=== PATIENT | male | born 1955 | race Caucasian/White ===

== ENCOUNTER 2017-02-01 10:20 | Inpatient (IN) | payer OTHER ==
[~2017-02-01] VITALS: Ht 165.1 cm; Wt 87.0 kg
[~2017-02-01 10:20] MED LIST: AMIT10TA6 PO; BENA20TA48 PO; FENO134C PO; GLIM2TAB PO; ISOS20TA19 PO; MELO-210 PO; METF1000 PO; OLME1TAB25 PO; OMEP20CA16 PO; RIVA20TA PO; SIMV40TA7 PO; TAMS0.4C2 PO; ZOLP10TA5 PO
[2017-02-01 10:23] VITALS: Ht 165.1 cm; Wt 87.0 kg
[2017-02-01 12:26] LABS: BASOPHILS % 0.7 % (0.0-2.0); EOSINOPHILS # 0.1 10^3/ul (0.0-0.5); EOSINOPHILS % 0.9 % (0.0-7.0); HEMATOCRIT 40.8 % (42.0-52.0); HEMOGLOBIN 14.4 g/dl (14.0-18.0); LYMPHOCYTES # 1.9 10^3/ul (0.8-2.9); MEAN CORPUSCULAR HEMOGLOBIN 31.7 pg (29.0-33.0); MEAN CORPUSCULAR HGB CONC 35.3 g/dl (32.0-37.0); MEAN CORPUSCULAR VOLUME 89.9 fl (82.0-101.0); MEAN PLATELET VOLUME 10.1 fl (7.4-10.4); MONOCYTE # 0.5 10^3/ul (0.3-0.9); MONOCYTES % 9.3 % (0.0-11.0); NEUTROPHIL # 2.8 10^3/ul (1.6-7.5); NEUTROPHILS % 52.9 % (39.0-77.0); PLATELET COUNT 195 10^3/UL (140-415); RED BLOOD COUNT 4.54 10^6/ul (4.70-6.10); RED CELL DISTRIBUTION WIDTH 12.5 % (11.5-14.5); WHITE BLOOD COUNT 5.4 10^3/ul (4.8-10.8)
[2017-02-01 12:32] LABS: ANION GAP 15 (8-16); BLOOD UREA NITROGEN 16 mg/dl (7-20); CALCIUM 9.4 mg/dl (8.4-10.2); CARBON DIOXIDE 25 mmol/L (21-31); CHLORIDE 106 mmol/L (97-110); CREATININE 0.93 mg/dl (0.61-1.24); GLUCOSE 86 mg/dl (70-220); POTASSIUM 4.1 mmol/L (3.5-5.1); SODIUM 142 mmol/L (135-144)
[2017-02-01 12:47] LABS: TROPONIN-I < 0.012 ng/ml (0.00-0.12)
[2017-02-01] MEDS ORDERED: LABETALOL HCL 20MG INJ IV ONE (13:00)
[2017-02-01] MEDS ORDERED: NITROGLYCERIN (SL) 0.4 MG TAB SL ONE (13:00)
[2017-02-01] MEDS ORDERED: ASPIRIN 81 MG TAB PO ONE (13:00)
[2017-02-01] MEDS ORDERED: LIDOCAINE/MYLANTA 40 ML BTL PO ONE (13:00)
--- NOTE | 2017-02-01 15:32 | RADRPT ---
PROCEDURE: XR Chest. CLINICAL INDICATION: Chest pain. TECHNIQUE: Single frontal view. COMPARISON: 07/17/2015. FINDINGS: There is mild interstitial disease bilaterally consistent with pulmonary edema. The lungs are otherw ise clear. The heart size is normal. There is no pleural effusion. There is no pneumothorax. IMPRESSION: 1. Mild pulmonary edema. 2. Otherwise normal chest x-ray. RPTAT: QQ .Rory Ceron MD, MD Date Time Electronically viewed and signed by .Rory Ceron MD, MD on 02/01/2017 15:31 .R/
[2017-02-01] MEDS ORDERED: ONDANSETRON 4 MG INJ IV PRN ×2 (16:00→18:30)
[2017-02-01] MEDS ORDERED: hydrALAzine 20 MG INJ IV ONE (16:00)
[2017-02-01] MEDS ORDERED: ACETAMINOPHEN 325 MG TAB PO PRN (16:00)
[2017-02-01 16:38] VITALS: TEMP 98.3
[2017-02-01 17:50] LABS: CREATINE KINASE 83 IU/L (23-200)
[2017-02-01 18:10] LABS: CK-MB 1.64 ng/ml (0.0-2.4); TROPONIN-I < 0.012 ng/ml (0.00-0.12)
[2017-02-01] MEDS ORDERED: SOD CHLORIDE 0.45% 1,000 ML IV SCH (18:17)
--- NOTE | 2017-02-01 18:26 | ERD ---
ER Documentation Chief Complaint Chief Complaint CHEST PAIN WITH SOB HPI This 61-year-old male presents with pressure-like substernal and left-sided chest pain going on for a few hours as well as shortness of breath and intermittent nausea. Pain is nonradiating. He has diabetes, hypertension, hypercholesterolemia. He has not smoked before. ROS All systems reviewed and are negative except as per history of present illness. Medications Home Meds Active Scripts Olmesartan-Hydrochlorothiazide (Benicar HCT) 40-12.5 Mg Tablet, 1 TAB PO DAILY, #30 TAB Prov:TIMOTHY ALBERTS DO 10/01/15 Rivaroxaban* (Xarelto*) 20 Mg Tablet, 20 MG PO WITH DINNER for 30 Days, TAB Prov:FARHEEN CARTER COTTON CONVERTER 07/19/15 Reported Medications Amitriptyline Hcl* (Amitriptyline Hcl*) 10 Mg Tablet, 10 MG PO DAILY 07/17/15 Fenofibrate, Micronized (Fenofibrate) 134 Mg Capsule, 134 MG PO DAILY 07/17/15 Metformin Hcl* (Metformin Hcl*) 1,000 Mg Tablet, 1000 MG PO BID 07/17/15 Omeprazole* (Omeprazole*) 20 Mg Capsule.dr, 20 MG PO DAILY 07/17/15 Meloxicam* (Mobic*) 15 Mg Tablet, 15 MG PO DAILY 07/17/15 Isosorbide Dinitrate* (Isosorbide Dinitrate*) 20 Mg Tablet, 30 MG PO DAILY 07/17/15 Tamsulosin Hcl* (Tamsulosin Hcl*) 0.4 Mg Cap.er.24h, 0.4 MG PO DAILY, CAP 07/17/15 Glimepiride* (Glimepiride*) 2 Mg Tablet, 2 MG PO DAILY 07/17/15 Zolpidem Tartrate* (Zolpidem Tartrate*) 10 Mg Tablet, 10 MG PO QHS Y for INSOMNIA, #30 07/17/15 Simvastatin (Simvastatin) 40 Mg Tablet, 40 MG PO DAILY 07/17/15 Benazepril Hcl* (Benazepril Hcl*) 20 Mg Tablet, 20 MG PO DAILY 07/17/15 Allergies Allergies: Coded Allergies: No Known Allergy (Unverified , 02/01/17) PMhx/Soc History of Surgery: No Anesthesia Reaction: No Hx Neurological Disorder: No Hx Respiratory Disorders: No Hx Cardiac Disorders: Yes (HTN) Hx Psychiatric Problems: No Hx Miscellaneous Medical Probl: Yes (DM, ENLARGED PROSTATE) Hx Alcohol Use: Yes (Vodka socially) Hx Substance Use: No Hx Tobacco Use: No (FORMER) Smoking Status: Former smoker Physical Exam Vitals Vital Signs Date Time Temp Pulse Resp B/P Pulse Ox O2 Delivery O2 Flow Rate FiO2 02/01/17 17:11 66 17 152/105 100 Room Air 02/01/17 16:38 98.3 56 18 141/105 100 Room Air 02/01/17 15:18 98.3 54 18 150/128 100 Room Air 02/01/17 13:45 72 18 145/97 100 Room Air 02/01/17 12:58 70 18 165/127 100 Room Air 02/01/17 11:38 Nasal Cannula 2 02/01/17 10:23 98.1 78 18 179/107 100 Physical Exam Const: [] Moderate distress Head: Atraumatic Eyes: Normal Conjunctiva ENT: Normal External Ears, Nose and Mouth. Neck: Full range of motion..~ No meningismus. Resp: Clear to auscultation bilaterally Cardio: Irregularly irregular, no murmurs Abd: Soft, non tender, non distended. Normal bowel sounds Skin: No petechiae or rashes Back: No midline or flank tenderness Ext: No cyanosis, or edema Neur: Awake and alert oriented 3, no focal deficits Psych: Normal Mood and Affect Result Diagram: 02/01/17 1144 02/01/17 1144 Results 24 hrs Laboratory Tests Test 02/01/17 11:44 02/01/17 17:15 White Blood Count 5.410^3/ul Red Blood Count 4.5410^6/ul Hemoglobin 14.4g/dl Hematocrit 40.8% Mean Corpuscular Volume 89.9fl Mean Corpuscular Hemoglobin 31.7pg Mean Corpuscular Hemoglobin Concent 35.3g/dl Red Cell Distribution Width 12.5% Platelet Count 40611^3/UL Mean Platelet Volume 10.1fl Neutrophils % 52.9% Lymphocytes % 36.0% Monocytes % 9.3% Eosinophils % 0.9% Basophils % 0.7% Nucleated Red Blood Cells % 0.0/100WBC Neutrophils # 2.810^3/ul Lymphocytes # 1.910^3/ul Monocytes # 0.510^3/ul Eosinophils # 0.110^3/ul Basophils # 0.010^3/ul Nucleated Red Blood Cells # 0.010^3/ul Sodium Level 142mmol/L Potassium Level 4.1mmol/L Chloride Level 106mmol/L Carbon Dioxide Level 25mmol/L Anion Gap 15 Blood Urea Nitrogen 16mg/dl Creatinine 0.93mg/dl Glucose Level 86mg/dl Calcium Level 9.4mg/dl Troponin I < 0.012ng/ml < 0.012ng/ml Creatine Kinase 83IU/L Creatine Kinase Index 2.0 Creatinine Kinase MB (Mass) 1.64ng/ml Current Medications Medications (Trade) Dose Ordered Sig/Jordan Route PRN Reason Start Time Stop Time Status Last Admin Dose Admin Aspirin (Aspirin) 324 mg ONCE ONCE PO 02/01/17 13:00 02/01/17 13:14 DC 02/01/17 13:09 Miscellaneous Medication (Gi Cocktail (2)) 40 ml ONCE ONCE PO 02/01/17 13:00 02/01/17 13:14 DC 02/01/17 13:09 Nitroglycerin (Nitroglycerin (Sl Tab) 0.4 Mg) 1 tab ONCE ONCE SL 02/01/17 13:00 02/01/17 13:14 DC 02/01/17 13:09 Labetalol HCl (Labetalol) 20 mg ONCE ONCE IV 02/01/17 13:00 02/01/17 13:14 DC Hydralazine HCl (Apresoline) 10 mg ONCE ONCE IV 02/01/17 16:00 02/01/17 16:01 DC 02/01/17 16:37 Ondansetron HCl (Zofran Inj) 4 mg ER BRIDGE PRN IV NAUSEA AND/OR VOMITING 02/01/17 16:00 02/02/17 15:59 Acetaminophen (Tylenol Tab) 650 mg ER BRIDGE PRN PO MILD PAIN/FEVER 02/01/17 16:00 02/02/17 15:59 Procedures/MDM Hypertensive crisis with chest pain and congestive heart failure.. Patient required multiple doses of antihypertensives to lower his refractory hypertension with very high diastolic pressures. He was given aspirin, nitroglycerin, hydralazine. His insurance had him capitated in the hospital and I had spoken with Dr. Lr, who accepted transfer at that time the patient had stabilized blood pressure however it increased even higher levels than before. Given a dose of hydralazine. His blood pressure increases again while he is in the emergency room I considering place him on a Cardene drip in ICU admission. Chest pain was improved with nitroglycerin although patient did have some residual chest pain. EKG showed only A. fib without any ischemia and initial troponin was negative. Is being admitted to telemetry for further monitoring. Hospitalist group is admitting him, Dr. Kashif Mason. I reviewed patient's EMR and she was admitted for chest pain last year. He was ruled out with troponins and had an echocardiogram showing moderate tricuspid disease and mildly depressed ejection fraction. No stress test or catheterization has been performed. EKG interpretation: Atrial fibrillation, rate controlled, no ST-T wave changes concerning for acute ischemia. monitoring analyst interpretation: Atrial fibrillation with no other arrhythmias X-ray interpretation: Engorgement of the pulmonary vasculature with mild bilateral pulmonary edema, no infiltrates, no pneumothorax, no fractures. Care time greater than 35 minutes: This includes treatment of hypertensive crisis with refractory diastolic blood pressure, use of nitroglycerin, hydralazine, consideration of Cardene drip and ICU admission, opens the patient' s bedside to reassess status, review of chart, discussion with patient and admitting doctor. This does not include any billable procedures. Departure Diagnosis: Primary Impression: Chest pain Additional Impressions: Atrial fibrillation CHF (congestive heart failure) Hypertensive emergency Condition: Serious ALVA DODGE DO Feb 01, 2017 18:26
[2017-02-01] MEDS ORDERED: morphine 2 MG INJ IV PRN (18:30)
[2017-02-01] MEDS ORDERED: NACL 0.9% 3 ML SYG IV SCH (18:30)
[2017-02-01] MEDS ORDERED: BISACODYL (EC) 5 MG TAB PO PRN (18:30)
[2017-02-01] MEDS ORDERED: hydrALAzine 20 MG INJ IV PRN (19:00)
--- NOTE | 2017-02-01 19:09 | HP ---
Date/Time of Note Date/Time of Note DATE: 02/01/17 TIME: 19:01 Assessment/Plan VTE Prophylaxis VTE Prophylaxis Intervention: other Lines/Catheters IV [facility] Type [facility]from [email or web address] Saline Lock Assessment/Plan Chief Complaint/Hosp Course Patient is a 61-year-old male with past medical history of A. fib and diabetes mellitus who presents with hypertensive urgency and chest pain Assessment and plan Chest pain Hypertensive urgency Atrial fibrillation Diabetes mellitus Dyslipidemia BPH Hypertension -Dr. Nguyen cardiology has been consulted, aspirin has been given in the ED, troponins negative 3, echocardiogram ordered. Patient is unreliable with medications, will start medications based on previous admission, patient states that he only takes hydralazine for blood pressure. Will titrate up slowly and use hydralazine as needed for blood pressure -Insulin sliding scale for glucose control -Monitor on telemetry -Continue home meds as able -Mild hydration -If patient's blood pressure is uncontrolled, will need to upgrade to ICU for Cardene drip Problems: HPI/ROS Admit Date/Time Admit Date/Time Hx of Present Illness Patient is a 61-year-old male with a past medical history significant for atrial fibrillation and diabetes mellitus who presents to [facility] for a 1 day onset of chest pain. Patient states that the chest pain is left-sided and central and does not radiate. Patient is still in chest pain however it is relieved by nitroglycerin given in the ED. Patient states that he has been taking medications, however does not remember names of all his medications. Patient states that he is taking hydralazine, however hydralazine is not on his previous medication. Patient's test clerk is Dr. Reynold Nguyen , and he last saw his test clerk 1 month ago. Patient states he takes all medications as directed. Patient also was found to be in hypertensive urgency. PMH: A. fib, diabetes mellitus, dyslipidemia, EPH, hypertension Social: Denies drugs, smoking, occasional alcohol PMH/Family/Social Past Surgical History Past Surgical Hx: no surgical history Social History Smoking Status: Former smoker Exam/Review of Systems Vital Signs Vitals Vital Signs Date Time Temp Pulse Resp B/P Pulse Ox O2 Delivery O2 Flow Rate FiO2 02/01/17 17:11 66 17 152/105 100 Room Air 02/01/17 16:38 98.3 10/25/17 11:38 2 Exam Exam Physical exam General: Patient is laying in bed and answers questions appropriately Mentation: Patient is alert and oriented 4, Head: Normocephalic atraumatic Eyes: EOMI, pupils reactive to light Neck: Supple, nontender, midline Respiratory: Clear to auscultation bilaterally Cardiovascular: regular rate, no obvious murmurs Gastrointestinal: non-tender to palpation, bowel sounds heard. Neurological: Moves all extremities spontaneously Skin: No new skin lesions Labs Result Diagram: 02/01/17 1144 02/01/17 1144 Medications Medications Current Medications Sodium Chloride (1/2 NS) 1,000 ml @ 50 mls/hr Q20H IV ; Start 02/01/17 at 18: 17 Ondansetron HCl (Zofran Inj) 4 mg Q6H PRN IV NAUSEA AND/OR VOMITING; Start at 18:30 Acetaminophen (Tylenol Tab) 650 mg Q6H PRN PO PAIN LEVEL 1-3 OR FEVER; Start 02/01/17 at 18:30 Morphine Sulfate (morphine) 2 mg Q4H PRN IV PAIN LEVEL 7-10; Start 02/01/17 at 18:30 Bisacodyl (Dulcolax) 5 mg DAILY PRN PO CONSTIPATION; Start 02/01/17 at 18:30 Pantoprazole (Protonix Tab) 40 mg DAILY@06 PO ; Start 02/02/17 at 06:00 Amitriptyline HCl (Elavil) 10 mg DAILY PO ; Start 02/02/17 at 09:00 Benazepril HCl (Lotensin) 20 mg DAILY PO ; Start 02/01/17 at 18:30 Tamsulosin HCl (Flomax) 0.4 mg QHS PO ; Start 02/01/17 at 21:00 Miscellaneous Information 40 mg DAILY PO ; Start 02/02/17 at 09:00; Status RODNEY MCNEIL Feb 01, 2017 19:09
[2017-02-01] MEDS ORDERED: GLUCAGON 1 MG INJ IM PRN (19:30)
[2017-02-01] MEDS ORDERED: DEXTROSE 50% 50 ML SYRINGE IV PRN ×2 (19:30)
[2017-02-01] MEDS ORDERED: GLUCOSE GEL 15 GRAM TUBE PO PRN ×2 (19:30)
[2017-02-01] MEDS ORDERED: GLUCOSE GEL 15 GRAM TUBE BUCCAL PRN (19:30)
[2017-02-01] MEDS: ACETAMINOPHEN 325 MG TAB PO PRN (19:48)
[2017-02-01 20:00] VITALS: BP 135/95; PULSE 98; RESP 18
[2017-02-01] MEDS: BENAZEPRIL 20 MG TAB PO SCH ×2 (21:00→21:42)
[2017-02-01] MEDS: INSULIN ASPART [NOVOLOG] 3 ML PEN SC SCH (21:00)
[2017-02-01] MEDS: TAMSULOSIN (SR) 0.4 MG CAP PO SCH ×2 (21:00→21:43)
[2017-02-01] MEDS: ATORVASTATIN 20 MG TAB PO SCH (21:42)
[2017-02-01] MEDS: AMLODIPINE 10 MG TAB PO SCH (21:43)
[2017-02-02] VITALS (11 sets, daily range): BP systolic 115–159; BP diastolic 67–97; PULSE 57–85; RESP 17–20
[2017-02-02 01:53] LABS: TROPONIN-I 0.013 ng/ml (0.00-0.12)
[2017-02-02 01:55] LABS: CK-MB 1.77 ng/ml (0.0-2.4)
[2017-02-02] MEDS: ACCU-CHEK XX SCH (02:00)
[2017-02-02] MEDS ORDERED: SUMATRIPTAN 6 MG/0.5 ML INJ SC ONE (04:30)
[2017-02-02] MEDS: PANTOPRAZOLE (EC) 40 MG TAB PO SCH (06:00)
[2017-02-02 06:30] LABS: BASOPHILS % 0.5 % (0.0-2.0); EOSINOPHILS # 0.1 10^3/ul (0.0-0.5); EOSINOPHILS % 0.9 % (0.0-7.0); HEMATOCRIT 42.5 % (42.0-52.0); HEMOGLOBIN 14.5 g/dl (14.0-18.0); LYMPHOCYTES # 1.8 10^3/ul (0.8-2.9); LYMPHOCYTES % 29.9 % (15.0-51.0); MEAN CORPUSCULAR HEMOGLOBIN 30.5 pg (29.0-33.0); MEAN CORPUSCULAR HGB CONC 34.1 g/dl (32.0-37.0); MEAN CORPUSCULAR VOLUME 89.3 fl (82.0-101.0); MEAN PLATELET VOLUME 10.3 fl (7.4-10.4); MONOCYTE # 0.5 10^3/ul (0.3-0.9); MONOCYTES % 7.9 % (0.0-11.0); NEUTROPHIL # 3.6 10^3/ul (1.6-7.5); NEUTROPHILS % 60.6 % (39.0-77.0); PLATELET COUNT 182 10^3/UL (140-415); RED BLOOD COUNT 4.76 10^6/ul (4.70-6.10); RED CELL DISTRIBUTION WIDTH 12.6 % (11.5-14.5); WHITE BLOOD COUNT 5.9 10^3/ul (4.8-10.8)
[2017-02-02 07:04] LABS: ALBUMIN 4.6 g/dl (3.3-4.9); ALBUMIN/GLOBULIN RATIO 1.48; CALCIUM 8.8 mg/dl (8.4-10.2); CHOL/HDL RATIO 3.9 RATIO; CREATININE 0.79 mg/dl (0.61-1.24); POTASSIUM 3.5 mmol/L (3.5-5.1); TOTAL PROTEIN 7.7 g/dl (6.1-8.1)
[2017-02-02] MEDS: INSULIN ASPART [NOVOLOG] 3 ML PEN SC SCH ×4 (08:00→21:00)
[2017-02-02] MEDS: AMLODIPINE 10 MG TAB PO SCH (08:24)
[2017-02-02] MEDS: BENAZEPRIL 20 MG TAB PO SCH (08:24)
[2017-02-02] MEDS ORDERED: AMITRIPTYLINE 10 MG TAB PO SCH (09:00)
[2017-02-02] MEDS ORDERED: NON-FORMULARY/PATIENT OWN MED (Omeprazole* 20 MG) PO SCH (09:00)
[2017-02-02] MEDS: ASPIRIN 81 MG TAB PO SCH (11:39)
[2017-02-02] MEDS ORDERED: NITROGLYCERIN (SL) 0.4 MG TAB SL PRN (14:30)
--- NOTE | 2017-02-02 15:48 | PN ---
Date/Time of Note Date/Time of Note DATE: 02/02/17 TIME: 15:46 Assessment/Plan VTE Prophylaxis VTE Prophylaxis Intervention: other Lines/Catheters IV Catheter Type (from [facility]): Peripheral IV Assessment/Plan Chief Complaint/Hosp Course Patient is a 61-year-old male with past medical history of A. fib and diabetes mellitus who presents with hypertensive urgency and chest pain Assessment and plan Chest pain Hypertensive urgency Atrial fibrillation Diabetes mellitus Dyslipidemia BPH Hypertension -Dr. Nguyen cardiology consulted, plans cath, possible tomorrow -Insulin sliding scale for glucose control -Monitor on telemetry -Continue home meds as able, patient non compliant, will start med indicated for CAD -Mild hydration -BP under control Problems: Subjective 24 Hr Interval Summary Free Text/Dictation complains of nausea and headache Exam/Review of Systems Vital Signs Vitals Vital Signs Date Time Temp Pulse Resp B/P Pulse Ox O2 Delivery O2 Flow Rate FiO2 02/02/17 12:13 78 02/02/17 11:46 97.4 18 135/90 96 02/01/17 19:24 Room Air 02/01/17 11:38 2 Intake and Output 02/01/17 02/01/17 02/02/17 15:00 23:00 07:00 Intake Total 750 ml Balance 750 ml Exam Physical exam General: Patient is laying in bed and answers questions appropriately Mentation: Patient is alert and oriented 4, Head: Normocephalic atraumatic Eyes: EOMI, pupils reactive to light Neck: Supple, nontender, midline Respiratory: Clear to auscultation bilaterally Cardiovascular: regular rate, no obvious murmurs Gastrointestinal: non-tender to palpation, bowel sounds heard. Neurological: Moves all extremities spontaneously Skin: No new skin lesions Results Result Diagram: 02/02/1752502/02/17525 Results 24 hrs Laboratory Tests Test 02/01/17 17:15 02/01/17 19:51 02/02/17 00:19 02/02/17 05:26 Creatine Kinase 83 72 Creatine Kinase Index 2.0 2.5 Creatinine Kinase MB (Mass) 1.64 1.77 Troponin I < 0.012 0.013 Bedside Glucose 92 White Blood Count 5.9 Red Blood Count 4.76 Hemoglobin 14.5 Hematocrit 42.5 Mean Corpuscular Volume 89.3 Mean Corpuscular Hemoglobin 30.5 Mean Corpuscular Hemoglobin Concent 34.1 Red Cell Distribution Width 12.6 Platelet Count 182 Mean Platelet Volume 10.3 Neutrophils % 60.6 Lymphocytes % 29.9 Monocytes % 7.9 Eosinophils % 0.9 Basophils % 0.5 Nucleated Red Blood Cells % 0.0 Neutrophils # 3.6 Lymphocytes # 1.8 Monocytes # 0.5 Eosinophils # 0.1 Basophils # 0.0 Nucleated Red Blood Cells # 0.0 Sodium Level 141 Potassium Level 3.5 Chloride Level 103 Carbon Dioxide Level 24 Anion Gap 18 H Blood Urea Nitrogen 17 Creatinine 0.79 Glucose Level 117 Calcium Level 8.8 Total Bilirubin 1.0 Direct Bilirubin 0.00 Indirect Bilirubin 1.0 Aspartate Amino Transf (AST/SGOT) 25 Alanine Aminotransferase (ALT/SGPT) 48 Alkaline Phosphatase 55 Total Protein 7.7 Albumin 4.6 Globulin 3.10 Albumin/Globulin Ratio 1.48 Triglycerides Level 391 H Cholesterol Level 138 LDL Cholesterol, Calculated 25 HDL Cholesterol 35 Cholesterol/HDL Ratio 3.9 Test 02/02/17 08:22 02/02/17 11:42 Bedside Glucose 115 146 Medications Medications Current Medications Ondansetron HCl (Zofran Inj) 4 mg Q6H PRN IV NAUSEA AND/OR VOMITING; Start at 18:30 Acetaminophen (Tylenol Tab) 650 mg Q6H PRN PO PAIN LEVEL 1-3 OR FEVER Last administered on 02/01/17 19:48; Admin Dose 650 MG; Start 02/01/17 at 18:30 Morphine Sulfate (morphine) 2 mg Q4H PRN IV PAIN LEVEL 7-10; Start 02/01/17 at 18:30 Bisacodyl (Dulcolax) 5 mg DAILY PRN PO CONSTIPATION; Start 02/01/17 at 18:30 Pantoprazole (Protonix Tab) 40 mg DAILY@06 PO ; Start 02/02/17 at 06:00 Tamsulosin HCl (Flomax) 0.4 mg QHS PO ; Start 02/01/17 at 21:00 Atorvastatin Calcium (Lipitor) 20 mg DAILY@21 PO Last administered on 21:42; Admin Dose 20 MG; Start 02/01/17 at 21:00 Hydralazine HCl (Apresoline) 10 mg Q4H PRN IV SBP>160 Last administered on 19:05; Admin Dose 10 MG; Start 02/01/17 at 19:00 Amlodipine Besylate (Norvasc) 10 mg DAILY PO Last administered on 02/02/17t 08 :24; Admin Dose 10 MG; Start 02/01/17 at 19:00 Diagnostic Test (Pha) (Accu-Chek) 1 ea 02 XX ; Start 02/02/17 at 02:00 Miscellaneous Information 1 ea NOTE XX ; Start 02/01/17 at 19:30 Glucose (Glutose) 15 gm Q15M PRN PO DECREASED GLUCOSE; Start 02/01/17 at 19:30 Glucose (Glutose) 22.5 gm Q15M PRN PO DECREASED GLUCOSE; Start 02/01/17 at 19: 30 Dextrose (D50w Syringe) 25 ml Q15M PRN IV DECREASED GLUCOSE; Start 02/01/17 at 19:30 Dextrose (D50w Syringe) 50 ml Q15M PRN IV DECREASED GLUCOSE; Start 02/01/17 at 19:30 Glucagon (Glucagen) 1 mg Q15M PRN IM DECREASED GLUCOSE; Start 02/01/17 at 19: 30 Glucose (Glutose) 15 gm Q15M PRN BUCCAL DECREASED GLUCOSE; Start 02/01/17 at 19:30 Aspirin (Aspirin) 81 mg DAILY PO Last administered on 02/02/17t 11:39; Admin Dose 81 MG; Start 02/02/17 at 10:00 Benazepril HCl (Lotensin) 20 mg BID PO ; Start 02/02/17 at 21:00 Metoprolol Tartrate (Lopressor) 25 mg BID PO ; Start 02/02/17 at 21:00 Nitroglycerin (Nitroglycerin (Sl Tab) 0.4 Mg) 1 tab Q5M PRN SL ANGINA; Start 02/02/17 at 14:30 RODNEY BROOKS Feb 02, 2017 15:48
[2017-02-02] MEDS ORDERED: ACET/BUTAL/CAFF TAB PO PRN (16:00)
[2017-02-02] MEDS: ACETAMINOPHEN 325 MG TAB PO PRN (17:43)
[2017-02-02] MEDS: RIVAROXABAN 20 MG TABLET PO SCH (17:43)
--- NOTE | 2017-02-02 19:29 | CONS ---
DATE OF ADMISSION: 02/01/2017 DATE OF CONSULTATION: 02/02/2017 REASON FOR CONSULTATION: Chest pain, assess for acute coronary syndrome, hypertension. REQUESTING PHYSICIAN: Dr. Brooks from the hospitalist service. HISTORY OF PRESENT ILLNESS: Mr. Mondragon is a 61-year-old male with a history of hypertension, atrial fibrillation, diabetes mellitus, dyslipidemia, and BPH who presented with complaints of substernal chest pain on the day prior to admit. The patient felt poorly, describes the pain. Upon arrival in the emergency department, temperature 98.1, blood pressure /107, pulse 78, respiratory rate 1 8, saturating 100%. The patient's labs, white count 5.4, hemoglobin 14.4, platelet count 195. Sodi um 142, potassium 4.1, creatinine 0.9, BUN 16. Troponin negative. The patient underwent a chest x- ray revealing mild pulmonary edema. The patient's electrocardiogram revealed atrial fibrillation, r ate of 67, normal axis, normal intervals, inferior T-wave inversion. Patient subsequently admitted to the floor. Since admit to the hospital, the patient has been continuously monitored on telemetry revealing rate controlled atrial fibrillation. The patient has had a total of 3 negative troponins ruling him out for acute myocardial infarction. The patient has had improvement in overall blood p ressure with medications being given in the hospital here. PAST MEDICAL HISTORY: As above in HPI. The patient underwent a recent stress test in my office, re sults of which are pending. MEDICATIONS CURRENTLY IN HOSPITAL: 1. Benazepril 20 mg p.o. b.i.d. 2. Aspirin 81 mg daily. 3. Protonix 40 mg daily. 4. Xarelto 20 mg at bedtime. 5. Flomax 0.4 mg at bedtime. 6. Lipitor 20 mg daily. 7. Insulin sliding scale. 8. Zofran p.r.n. 9. Tylenol p.r.n. 10. Norvasc 10 mg daily. 11. Hydralazine p.r.n. 12. Morphine p.r.n. 13. Dulcolax p.r.n. ALLERGIES: NO KNOWN DRUG ALLERGIES. SOCIAL HISTORY: Prior tobacco, quit recently. Social ETOH. No illicit drug use. FAMILY HISTORY: No history of sudden cardiac or early CAD. REVIEW OF SYSTEMS: As above in HPI. CONSTITUTIONAL: No fevers, chills. PULMONARY: Shortness of breath. CARDIOVASCULAR: Chest pain. GASTROINTESTINAL: No vomiting. GENITOURINARY: No hematuria. MUSCULOSKELETAL: Degenerative joint disease. PSYCHIATRIC: The patient denies depression. NEUROLOGIC: No documented history of CVA. PHYSICAL EXAMINATION VITAL SIGNS: Temperature 97.4, blood pressure most recently /90, pulse 66, respiratory rate 1 8, saturating 96%. GENERAL: The patient is alert, awake, complaining of intermittent substernal chest pain, shortness of breath. NECK: JVP approximately 9 cm of water. CHEST: Fair movement throughout with mildly decreased breath sounds at bases bilaterally. HEART: Regular rate and rhythm. Normal S1, S2, I/ systolic murmur, nondisplaced PMI. ABDOMEN: Positive bowel sounds, soft. EXTREMITIES: No pitting edema, 1+ pulses bilateral posterior tibial. LABORATORIES: Most recent from today, white count 5.9, hemoglobin 14.5, platelet count 182. Sodium 141, potassium 3.5, creatinine 0.79, BUN 17. Troponin negative x3. LDL 25, HDL 35. IMAGING STUDIES: As above in HPI. No further imaging studies for my review at this time. ECG: As above in HPI. No further electrocardiograms for my review at this time. IMPRESSION: 1. Chest pain, assess for acute coronary syndrome. 2. Hypertension, initially consistent with hypertensive urgency/emergency, now currently improving on oral antihypertensives. 3. Abnormal electrocardiogram with nonspecific ST-T-wave abnormalities. 4. Paroxysmal atrial fibrillation, rate controlled, on systemic anticoagulation. 5. Former tobacco intake. 6. Dyslipidemia. 7. Diabetes mellitus. RECOMMENDATIONS: 1. At this time, would maintain the patient on telemetry monitoring to follow rhythm and rate contr ol closely. 2. Would check serial EKGs to assess for significant ongoing changes. Repeat EKG today, EKG for an y complaints of chest pain or change in rhythm. 3. Continue the patient's baseline benazepril, Norvasc and will initiate patient on beta eladio in the setting of atrial fibrillation, chest pain and follow symptomatology closely. 4. Continue the patient's Xarelto at this time and baby aspirin. 5. We will send additional troponin to ensure the patient has not had any recent coronary syndromes . 6. Follow the patient's volume status closely and give patient gentle Lasix diuresis. 7. Will follow up the patient's stress test and echo done recently in my office. Thank you for allowing me to take part in the care of this patient. I will continue to follow very closely with you with further recommendations to be made as the patient progresses through the [facility] clinical course. Dictated By: AYLA PHAM/JOSE J Conf#: [id number] DID#: [id number] CC: RODNEY BROOKS MD;*End*
[2017-02-02] MEDS: TAMSULOSIN (SR) 0.4 MG CAP PO SCH (21:00)
[2017-02-02] MEDS ORDERED: BENAZEPRIL 20 MG TAB PO SCH (21:00)
[2017-02-02] MEDS: ATORVASTATIN 20 MG TAB PO SCH (21:00)
[2017-02-02] MEDS: METOPROLOL 25 MG TAB PO SCH (21:00)
--- NOTE | 2017-02-02 21:13 | RADRPT ---
Echocardiogram Report Patient Name: HEMALATHA BENITEZ Gender: Male Date: 1955 Study Date: 02-Feb-2017 Bee Raiser: Ashlyn Lewis [facility] Location: 5541 Ref. Physician: RODNEY BROOKS Quality: Good Procedures: Transthoracic echocardiogram with complete 2D, M-Mode, and doppler examination. Indications: Chest Pain. 2D/M Mode Doppler Measurement Value Normal Ranges Measurement Value Normal Ranges LVIDd 2D 4.6 3.5 - 5.6 cm AV Peak Yonny 1.4 m/sec LVIDs 2D 2.3 2.1 - 4.1 cm AV Peak PG 8.2 mmHg LVPWd 2D 1.2 0.6 - 1.1 cm LVOT Peak Yonny 1.2 m/sec IVSd 2D 1.2 0.6 - 1.1 cm LVOT Peak PG 5.6 mmHg AoR Diam 2D 3.1 2.0 - 3.7 cm TR Peak Yonny 2.6 m/sec EDV 2D 95.2 cm3 TR Peak PG 27.7 mmHg ESV 2D 11.9 cm3 RVSP 31.0 mmHg LA Dimen 2D 2.9 2.3 - 4.0 cm Findings Left Ventricle: Normal left ventricular systolic function. Normal left ventricular cavity size. Mild concentric left ventricular hypertrophy. Ejection fraction is visually estimated at 55 %. Right Ventricle: Normal right ventricular size. Normal right ventricular systolic function. Left Atrium: The left atrium is normal in size. Right Atrium: The right atrium is normal in size. Mitral Valve: Normal appearance of the mitral valve. Mild mitral valve regurgitation. Aortic Valve: Normal appearance of the aortic valve. No significant aortic stenosis or insufficiency. Tricuspid Valve: Normal appearance of the tricuspid valve. Estimated peak PA systolic pressure 31 mmHg. There is mild tricuspid regurgitation. Pulmonic Valve: Normal pulmonic valve appearance. Pericardium: Normal pericardium with no significant pericardial effusion. Aorta: Normal aortic root. IVC: Normal size and normal respiratory collapse consistent with normal right atrial pressure. Conclusions 1.Normal left ventricular systolic function. Normal left ventricular cavity size. Mild concentric left ventricular hypertrophy. Ejection fraction is visually estimated at 55 %. 2.Normal appearance of the mitral valve. Mild mitral valve regurgitation. 3.Normal appearance of the tricuspid valve. Estimated peak PA systolic pressure 31 mmHg. There is mild tricuspid regurgitation. Electronically Signed By: Reynold Nguyen 02-Feb-2017 21:11:44 -0700 Patient Name: HEMALATHA BENITEZ Study Date: 02-Feb-[id number]
[2017-02-03] VITALS (25 sets, daily range): BP systolic 102–159; BP diastolic 67–97; PULSE 36–85; RESP 17–21
[2017-02-03] MEDS: ACCU-CHEK XX SCH (02:00)
[2017-02-03] MEDS: PANTOPRAZOLE (EC) 40 MG TAB PO SCH (06:00)
[2017-02-03] MEDS: INSULIN ASPART [NOVOLOG] 3 ML PEN SC SCH ×4 (07:33→21:00)
[2017-02-03] MEDS: AMLODIPINE 10 MG TAB PO SCH (08:14)
[2017-02-03] MEDS: METOPROLOL 25 MG TAB PO SCH ×2 (08:14→21:00)
[2017-02-03] MEDS: ASPIRIN 81 MG TAB PO SCH (08:14)
[2017-02-03] MEDS: BENAZEPRIL 20 MG TAB PO SCH (08:15)
[2017-02-03 08:51] LABS: BASOPHILS % 0.2 % (0.0-2.0); EOSINOPHILS # 0.1 10^3/ul (0.0-0.5); EOSINOPHILS % 0.8 % (0.0-7.0); HEMATOCRIT 41.6 % (42.0-52.0); HEMOGLOBIN 14.2 g/dl (14.0-18.0); LYMPHOCYTES # 2.2 10^3/ul (0.8-2.9); LYMPHOCYTES % 34.5 % (15.0-51.0); MEAN CORPUSCULAR HEMOGLOBIN 30.7 pg (29.0-33.0); MEAN CORPUSCULAR HGB CONC 34.1 g/dl (32.0-37.0); MEAN PLATELET VOLUME 10.4 fl (7.4-10.4); MONOCYTE # 0.6 10^3/ul (0.3-0.9); MONOCYTES % 8.7 % (0.0-11.0); NEUTROPHIL # 3.5 10^3/ul (1.6-7.5); NEUTROPHILS % 55.6 % (39.0-77.0); PLATELET COUNT 187 10^3/UL (140-415); RED BLOOD COUNT 4.62 10^6/ul (4.70-6.10); RED CELL DISTRIBUTION WIDTH 12.8 % (11.5-14.5); WHITE BLOOD COUNT 6.3 10^3/ul (4.8-10.8)
[2017-02-03 09:20] LABS: CALCIUM 9.2 mg/dl (8.4-10.2); CREATININE 0.94 mg/dl (0.61-1.24); MAGNESIUM 1.9 mg/dl (1.7-2.5); PHOSPHORUS 3.4 mg/dl (2.5-4.9); POTASSIUM 4.6 mmol/L (3.5-5.1)
[2017-02-03] MEDS ORDERED: SOD CHLORIDE 0.45% 1,000 ML IV SCH (10:00)
[2017-02-03] MEDS ORDERED: HEPARIN 1000 UNITS/NS (A-LINE) 1,000 ML ONE (11:15)
[2017-02-03] MEDS ORDERED: IODIXANOL LOCM 100 ML BTL ONE (11:15)
[2017-02-03] MEDS ORDERED: LIDOCAINE 1% (MDV) 20 ML INJ ONE (11:15)
[2017-02-03] MEDS ORDERED: HEPARIN 1000 UNITS/ML 10 ML INJ ONE (11:15)
[2017-02-03] MEDS ORDERED: MIDAZOLAM 1 MG/ML 2 ML INJ ONE (11:16)
[2017-02-03] MEDS ORDERED: VERAPAMIL 5 MG INJ ONE (11:16)
[2017-02-03] MEDS ORDERED: FENTAnyl 50 MCG/ML VIAL ONE (11:16)
[2017-02-03] MEDS ORDERED: NITROGLYCERIN (IC) 100 MCG/ML INJ ONE (11:16)
[2017-02-03] MEDS ORDERED: SOD CHLORIDE 0.9% 1,000 ML IV SCH (12:40)
--- NOTE | 2017-02-03 12:40 | CONS ---
Date/Time of Note Date/Time of Note DATE: 02/03/17 TIME: 12:34 Assessment/Plan Assessment/Plan Chief Complaint/Hosp Course IMPRESSION: 1. Chest pain, assess for acute coronary syndrome-trop negative x 3/NL EF by echo. Now POD#0 s/p LHC 02/03 with no sig obstructive cad/NL EF 2. Hypertension, initially consistent with hypertensive urgency/emergency, now currently improving on oral antihypertensives. 3. Abnormal electrocardiogram with nonspecific ST-T-wave abnormalities. 4. Paroxysmal atrial fibrillation, rate controlled, on systemic anticoagulation. 5. Former tobacco intake. 6. Dyslipidemia. 7. Diabetes mellitus. 8. Abnl MPI 01/18/17 with anterior ischemia/NL EF Recc: -Tele -serial ecg's -Continue BB/ACEI/norvasc -continue xarelto/asa/statin -D/C planning with outpatient f/u from cardiac standpoint Problems: Consultation Date/Type/Reason Admit Date/Time Feb 01, 2017 at 15:52 Initial Consult Date 02/02/2017 Type of Consultation: cardiology Reason for Consultation chest pain/abnl mpi Referring Provider: RODNEY BROOKS Exam/Review of Systems Vital Signs Vitals Vital Signs Date Time Temp Pulse Resp B/P Pulse Ox O2 Delivery O2 Flow Rate FiO2 02/03/17 08:09 59 02/03/17 07:55 97.9 19 159/97 96 02/01/17 19:24 Room Air 02/01/17 11:38 2 Intake and Output 02/02/17 02/02/17 02/03/17 15:00 23:00 07:00 Intake Total 800 ml 400 ml Output Total 500 ml Balance 300 ml 400 ml Exam Review of Systems: CONSTITUTIONAL: No fevers, chills. PULMONARY: No sob CARDIOVASCULAR: ongoing chest pain GASTROINTESTINAL: No nausea/vomiting. GENITOURINARY: No hematuria/dysuria. MUSCULOSKELETAL: No myagias/arthalgias. PSYCHIATRIC: The patient denies depression. NEUROLOGIC: No weakness Constitutional: alert, oriented Psych: no complaints Head: normocephalic ENMT: mucosa pink and moist Neck: jvd (9 cm water), supple Respiratory: clear to auscultation Cardiovascular: regular rate and rhythm Gastrointestinal: non-tender, soft Musculoskeletal: muscle tone (normal) Extremities: edema (none) Neurological: other (No focal deficits) Results Result Diagram: 02/03/17 0806 02/03/17 0806 Results 24 hrs Laboratory Tests Test 02/02/17 17:44 02/02/17 22:00 02/03/17 07:26 02/03/17 08:06 Bedside Glucose 143 134 105 White Blood Count 6.3 Red Blood Count 4.62 L Hemoglobin 14.2 Hematocrit 41.6 L Mean Corpuscular Volume 90.0 Mean Corpuscular Hemoglobin 30.7 Mean Corpuscular Hemoglobin Concent 34.1 Red Cell Distribution Width 12.8 Platelet Count 187 Mean Platelet Volume 10.4 Neutrophils % 55.6 Lymphocytes % 34.5 Monocytes % 8.7 Eosinophils % 0.8 Basophils % 0.2 Nucleated Red Blood Cells % 0.0 Neutrophils # 3.5 Lymphocytes # 2.2 Monocytes # 0.6 Eosinophils # 0.1 Basophils # 0.0 Nucleated Red Blood Cells # 0.0 Sodium Level 142 Potassium Level 4.6 Chloride Level 104 Carbon Dioxide Level 30 Anion Gap 13 Blood Urea Nitrogen 15 Creatinine 0.94 Glucose Level 95 Calcium Level 9.2 Phosphorus Level 3.4 Magnesium Level 1.9 Troponin I 0.016 Medications Medications Current Medications Ondansetron HCl (Zofran Inj) 4 mg Q6H PRN IV NAUSEA AND/OR VOMITING; Start at 18:30 Acetaminophen (Tylenol Tab) 650 mg Q6H PRN PO PAIN LEVEL 1-3 OR FEVER Last administered on 02/02/17 17:43; Admin Dose 650 MG; Start 02/01/17 at 18:30 Morphine Sulfate (morphine) 2 mg Q4H PRN IV PAIN LEVEL 7-10; Start 02/01/17 at 18:30 Bisacodyl (Dulcolax) 5 mg DAILY PRN PO CONSTIPATION; Start 02/01/17 at 18:30 Pantoprazole (Protonix Tab) 40 mg DAILY@06 PO ; Start 02/02/17 at 06:00 Tamsulosin HCl (Flomax) 0.4 mg QHS PO ; Start 02/01/17 at 21:00 Atorvastatin Calcium (Lipitor) 20 mg DAILY@21 PO Last administered on 21:42; Admin Dose 20 MG; Start 02/01/17 at 21:00 Hydralazine HCl (Apresoline) 10 mg Q4H PRN IV SBP>160 Last administered on 19:05; Admin Dose 10 MG; Start 02/01/17 at 19:00 Amlodipine Besylate (Norvasc) 10 mg DAILY PO Last administered on 02/03/17 08 :14; Admin Dose 10 MG; Start 02/01/17 at 19:00 Diagnostic Test (Pha) (Accu-Chek) 1 ea 02 XX ; Start 02/02/17 at 02:00 Miscellaneous Information 1 ea NOTE XX ; Start 02/01/17 at 19:30 Glucose (Glutose) 15 gm Q15M PRN PO DECREASED GLUCOSE; Start 02/01/17 at 19:30 Glucose (Glutose) 22.5 gm Q15M PRN PO DECREASED GLUCOSE; Start 02/01/17 at 19: 30 Dextrose (D50w Syringe) 25 ml Q15M PRN IV DECREASED GLUCOSE; Start 02/01/17 at 19:30 Dextrose (D50w Syringe) 50 ml Q15M PRN IV DECREASED GLUCOSE; Start 02/01/17 at 19:30 Glucagon (Glucagen) 1 mg Q15M PRN IM DECREASED GLUCOSE; Start 02/01/17 at 19: 30 Glucose (Glutose) 15 gm Q15M PRN BUCCAL DECREASED GLUCOSE; Start 02/01/17 at 19:30 Aspirin (Aspirin) 81 mg DAILY PO Last administered on 02/03/17 08:14; Admin Dose 81 MG; Start 02/02/17 at 10:00 Metoprolol Tartrate (Lopressor) 25 mg BID PO Last administered on 02/03/17 08 :14; Admin Dose 25 MG; Start 02/02/17 at 21:00 Nitroglycerin (Nitroglycerin (Sl Tab) 0.4 Mg) 1 tab Q5M PRN SL ANGINA; Start 02/02/17 at 14:30 Benazepril HCl (Lotensin) 20 mg DAILY PO Last administered on 02/03/17 08:15 ; Admin Dose 20 MG; Start 02/03/17 at 09:00 Acetaminophen/ Butalbital/ Caffeine 1 tab 1 tab Q6H PRN PO headache; Start at 16:00 Sodium Chloride (1/2 NS) 1,000 ml @ 100 mls/hr Q10H IV ; Start 02/03/17 at 10: 00 AYLA JARRETT Feb 03, 2017 12:40
--- NOTE | 2017-02-03 12:45 | SIPON ---
Date/Time of Note Date/Time of Note DATE: 02/03/17 TIME: 12:43 Operative Report Preoperative Diagnosis 1.abnl mpi 2.Chest pain Postoperative Diagnosis 1.non-obstructive cad Operation/Procedure Performed 1.[facility] Surgeon see signature line family readiness support assistant Conchita Anesthesia: moderate sedation Estimated blood loss: minimal Transfusion Required none Specimen NA Grafts/Implants none Complications none AYLA JARRETT Feb 03, 2017 12:45
[2017-02-03] MEDS ORDERED: ACETAMINOPHEN 325 MG TAB PO PRN (13:00)
[2017-02-03] MEDS ORDERED: morphine 2 MG INJ IV PRN (13:00)
[2017-02-03] MEDS ORDERED: AL HYDROX/MG HYDROX/SIMETH 30 ML CUP PO PRN (13:00)
[2017-02-03] MEDS ORDERED: ONDANSETRON 4 MG INJ IV PRN (13:00)
--- NOTE | 2017-02-03 13:06 | CARRPT ---
DATE OF PROCEDURE: 02/03/2017 TYPE OF PROCEDURE: 1. Left heart catheterization. 2. Coronary angiography. 3. Moderate conscious sedation. ATTENDING PHYSICIAN: Ayla Nguyen MD. REFERRING PHYSICIAN: Dr. Rodney Mason. INDICATION: Chest pain concerning for unstable angina with positive stress test findings for anteri or ischemia, high risk marker for cardiovascular events. TYPE OF ANESTHESIA: Conscious and local. BRIEF HISTORY AND HOSPITAL COURSE: Mr. Mondragon is a 61-year-old male with history of hypertension, d yslipidemia, diabetes mellitus, ongoing tobacco usage, who initially presented with complaints of boone bsternal chest pain. The patient underwent an outpatient stress test just 1-2 weeks prior revealing anterior ischemia. He has been scheduled for an outpatient catheterization but presented with ches t pain concerning for unstable angina. Therefore, the patient was brought to the cardiac catheteriz ation lab in order to assess for the possibility of significant obstructive coronary artery disease lending to her symptoms of chest pain, positive stress test findings and admit to the hospital. PROCEDURE: After informed consent was obtained, the patient was brought to the [facility] cardiac catheterization laboratory where his right radial artery was prepped and draped in usual sterile fashion. Lidocaine 2% was infiltrated in the radial artery in order to achieve adequa te anesthesia. With modified Seldinger technique, the right artery was cannulated and a 6-Beninese ar terial sheath was placed. A 6-Beninese JL3.5 catheter was used to cannulate the left main coronary os tium with contrast injection. Multiple views of the left coronary arterial system were obtained. J L3.5 was removed over a guidewire and JR4 was used to cannulate the right coronary arterial ostium. With contrast injection, multiple views of the right coronary arterial system obtained. JR4 was re moved over a guidewire and a 6-Beninese pigtail was passed down the ascending artery to left ventricul ar, left end-diastolic pressure was measured and 20 mL of contrast were injected into the ventricle by a power injector and pulled back across the aortic valve. Subsequently, at this time, the patien t's pigtail catheter was removed. The patient's radial sheath was removed. applied. There w ere no noted complications. This completed the procedure. FINDINGS: 1. Coronary angiography: Left main 4 mm, no significant stenoses. The circumflex proximally is a 3.5 mm vessel and has mild luminal irregularities up to 20% and its mid portion is somewhat of a cod ominant vessel and therefore gives off a left-sided PDA in the posterolateral branch, each approxima tely 2 mm with no significant focal stenoses. The LAD proximally is a 3.5 mm vessel and has mild cuca agnieszka irregularities in the midportion up to approximately 20% around the apex. There are proximal and mid branching diagonals, each approximately 2 mm with no significant focal stenoses. The right coronary artery proximally is a 3.5 mm vessel, somewhat ectatic appearing in its proximal portion, h as luminal irregularities up to 23% in its mid portion. It is a dominant vessel, gives off a 2 mm P DA and a 3 mm posterolateral branch each with no significant focal stenoses with somewhat sluggish f low, likely consistent with microvascular disease. Left ventriculogram shows a left ventricular ejection fraction of 60-65%. Left ventricular diastoli c pressure 15, likely 1+ aortic regurgitation, trace to mild mitral regurgitation, no significant ao rtic stenosis by gradient. TOTAL FLUOROSCOPY TIME: 6 minutes. TOTAL CONTRAST: 91 mL. IMPRESSION: 1. Very mild nonobstructive coronary artery disease. 2. Preserved left ventricular systolic function. 3. Mild mitral regurgitation. 4. Mild aortic regurgitation. 5. No significant aortic stenosis by gradient. 6. Possible microvascular disease. RECOMMENDATIONS: In light of procedure and findings, at this time would: 1. Maximize medical management. 2. Aggressive risk factor. 3. Patient will be readmitted to telemetry floor for post-catheterization observation with probable discharge later this afternoon. Dictated By: AYLA PHAM/JOSE J Conf#: [id number] DID#: [id number] CC: RODNEY MASON MD;*EndCC*
--- NOTE | 2017-02-03 13:31 | PN ---
Date/Time of Note Date/Time of Note DATE: 02/03/17 TIME: 13:30 Assessment/Plan VTE Prophylaxis VTE Prophylaxis Intervention: ambulation Lines/Catheters IV [facility] Saline Lock Assessment/Plan Chief Complaint/Hosp Course Patient is a 61-year-old male with past medical history of A. fib and diabetes mellitus who presents with hypertensive urgency and chest pain Assessment and plan Chest pain Hypertensive urgency Atrial fibrillation Diabetes mellitus Dyslipidemia BPH Hypertension -Dr. Nguyen cardiology consulted, cath noted. no stent placed -Insulin sliding scale for glucose control -Monitor on telemetry for now -Continue home meds as able, patient non compliant, metoprolol added today -Mild hydration -BP control, slight elevation today DISPO: BP a little higher than optimal, will observe overnight with added metoprolol, if BP safe, will DC tomorrow AM. Problems: Subjective 24 Hr Interval Summary Free Text/Dictation no acute issues Exam/Review of Systems Vital Signs Vitals Vital Signs Date Time Temp Pulse Resp B/P Pulse Ox O2 Delivery O2 Flow Rate FiO2 02/03/17 08:09 59 02/03/17 07:55 97.9 19 159/97 96 02/01/17 19:24 Room Air 02/01/17 11:38 2 Intake and Output 02/02/17 02/02/17 02/03/17 14:59 22:59 06:59 Intake Total 800 ml 400 ml Output Total 500 ml Balance 300 ml 400 ml Exam Physical exam General: Patient is laying in bed and answers questions appropriately Mentation: Patient is alert and oriented 4, Head: Normocephalic atraumatic Eyes: EOMI, pupils reactive to light Neck: Supple, nontender, midline Respiratory: Clear to auscultation bilaterally Cardiovascular: regular rate, no obvious murmurs Gastrointestinal: non-tender to palpation, bowel sounds heard. Neurological: Moves all extremities spontaneously Skin: No new skin lesions Results Result Diagram: 02/03/17 0806 02/03/17 0806 Results 24 hrs Laboratory Tests Test 02/02/17 17:44 02/02/17 22:00 02/03/17 07:26 02/03/17 08:06 Bedside Glucose 143 134 105 White Blood Count 6.3 Red Blood Count 4.62 L Hemoglobin 14.2 Hematocrit 41.6 L Mean Corpuscular Volume 90.0 Mean Corpuscular Hemoglobin 30.7 Mean Corpuscular Hemoglobin Concent 34.1 Red Cell Distribution Width 12.8 Platelet Count 187 Mean Platelet Volume 10.4 Neutrophils % 55.6 Lymphocytes % 34.5 Monocytes % 8.7 Eosinophils % 0.8 Basophils % 0.2 Nucleated Red Blood Cells % 0.0 Neutrophils # 3.5 Lymphocytes # 2.2 Monocytes # 0.6 Eosinophils # 0.1 Basophils # 0.0 Nucleated Red Blood Cells # 0.0 Sodium Level 142 Potassium Level 4.6 Chloride Level 104 Carbon Dioxide Level 30 Anion Gap 13 Blood Urea Nitrogen 15 Creatinine 0.94 Glucose Level 95 Calcium Level 9.2 Phosphorus Level 3.4 Magnesium Level 1.9 Troponin I 0.016 Medications Medications Current Medications Ondansetron HCl (Zofran Inj) 4 mg Q6H PRN IV NAUSEA AND/OR VOMITING; Start at 18:30 Acetaminophen (Tylenol Tab) 650 mg Q6H PRN PO PAIN LEVEL 1-3 OR FEVER Last administered on 02/02/17 17:43; Admin Dose 650 MG; Start 02/01/17 at 18:30 Morphine Sulfate (morphine) 2 mg Q4H PRN IV PAIN LEVEL 7-10; Start 02/01/17 at 18:30 Bisacodyl (Dulcolax) 5 mg DAILY PRN PO CONSTIPATION; Start 02/01/17 at 18:30 Pantoprazole (Protonix Tab) 40 mg DAILY@06 PO ; Start 02/02/17 at 06:00 Tamsulosin HCl (Flomax) 0.4 mg QHS PO ; Start 02/01/17 at 21:00 Atorvastatin Calcium (Lipitor) 20 mg DAILY@21 PO Last administered on 21:42; Admin Dose 20 MG; Start 02/01/17 at 21:00 Hydralazine HCl (Apresoline) 10 mg Q4H PRN IV SBP>160 Last administered on 19:05; Admin Dose 10 MG; Start 02/01/17 at 19:00 Amlodipine Besylate (Norvasc) 10 mg DAILY PO Last administered on 02/03/17 08 :14; Admin Dose 10 MG; Start 02/01/17 at 19:00 Diagnostic Test (Pha) (Accu-Chek) 1 ea 02 XX ; Start 02/02/17 at 02:00 Miscellaneous Information 1 ea NOTE XX ; Start 02/01/17 at 19:30 Glucose (Glutose) 15 gm Q15M PRN PO DECREASED GLUCOSE; Start 02/01/17 at 19:30 Glucose (Glutose) 22.5 gm Q15M PRN PO DECREASED GLUCOSE; Start 02/01/17 at 19: 30 Dextrose (D50w Syringe) 25 ml Q15M PRN IV DECREASED GLUCOSE; Start 02/01/17 at 19:30 Dextrose (D50w Syringe) 50 ml Q15M PRN IV DECREASED GLUCOSE; Start 02/01/17 at 19:30 Glucagon (Glucagen) 1 mg Q15M PRN IM DECREASED GLUCOSE; Start 02/01/17 at 19: 30 Glucose (Glutose) 15 gm Q15M PRN BUCCAL DECREASED GLUCOSE; Start 02/01/17 at 19:30 Aspirin (Aspirin) 81 mg DAILY PO Last administered on 02/03/17 08:14; Admin Dose 81 MG; Start 02/02/17 at 10:00 Metoprolol Tartrate (Lopressor) 25 mg BID PO Last administered on 02/03/17 08 :14; Admin Dose 25 MG; Start 02/02/17 at 21:00 Nitroglycerin (Nitroglycerin (Sl Tab) 0.4 Mg) 1 tab Q5M PRN SL ANGINA; Start 02/02/17 at 14:30 Benazepril HCl (Lotensin) 20 mg DAILY PO Last administered on 02/03/17 08:15 ; Admin Dose 20 MG; Start 02/03/17 at 09:00 Acetaminophen/ Butalbital/ Caffeine 1 tab 1 tab Q6H PRN PO headache; Start at 16:00 Sodium Chloride (1/2 NS) 1,000 ml @ 100 mls/hr Q10H IV ; Start 02/03/17 at 10: 00 Acetaminophen (Tylenol Tab) 650 mg Q4H PRN PO NON-CARDIAC PAIN LEVEL (1-3); Start 02/03/17 at 13:00; Status UNV Morphine Sulfate (morphine) 2 mg Q2H PRN IV FOR NON CARDIAC PAIN (4-10); Start 02/03/17 at 13:00; Status UNV Al Hydrox/Mg Hydrox/Simethicone (Mag-Al Plus) 30 ml Q4H PRN PO GASTROINTESTINAL UPSET; Start 02/03/17 at 13:00; Status UNV Ondansetron HCl 4 mg 4 mg Q4H PRN IV NAUSEA AND/OR VOMITING; Start 02/03/17 at 13:00; Status UNV Sodium Chloride (NS) 1,000 ml @ 75 mls/hr [id number] IV ; Start 02/03/17 at 12:40 ; Stop 02/03/17 at 17:39; Status UNV RODNEY BROOKS Feb 03, 2017 13:31
--- NOTE | 2017-02-03 13:47 | RADRPT ---
Vent Rate: 68 bpm RR Interval: 0 msec NV Interval: 0 msec QRS Duration: 90 msec QT Interval: 422 msec QTC Interval: 448 msec P-R-T [place]: 0 - 18 - 42 degrees Atrial fibrillation Abnormal ECG Electronically Signed By: Patel Rush [id number]
[2017-02-03] MEDS: RIVAROXABAN 20 MG TABLET PO SCH (17:21)
[2017-02-03] MEDS: TAMSULOSIN (SR) 0.4 MG CAP PO SCH (21:38)
[2017-02-03] MEDS: ATORVASTATIN 20 MG TAB PO SCH (21:38)
[2017-02-04] VITALS (8 sets, daily range): BP systolic 121–151; BP diastolic 70–88; PULSE 55–75; RESP 17–18
[2017-02-04] MEDS: ACCU-CHEK XX SCH (01:11)
[2017-02-04] MEDS: PANTOPRAZOLE (EC) 40 MG TAB PO SCH (05:41)
[2017-02-04] MEDS: INSULIN ASPART [NOVOLOG] 3 ML PEN SC SCH ×2 (08:00→11:42)
[2017-02-04] MEDS: ASPIRIN 81 MG TAB PO SCH (08:24)
[2017-02-04] MEDS: METOPROLOL 25 MG TAB PO SCH (08:25)
[2017-02-04] MEDS: AMLODIPINE 10 MG TAB PO SCH (08:26)
[2017-02-04] MEDS: BENAZEPRIL 20 MG TAB PO SCH (08:26)
--- NOTE | 2017-02-04 09:50 | PDOCDIS ---
Discharge Instructions CONDITION Patient Condition: Stable HOME CARE INSTRUCTIONS: Special Diet: CARDIAC ACTIVITY: Activity Restrictions: Slowly Increase Activity FOLLOW UP/APPOINTMENTS Follow-up Plan 1. Please follow up with your primary care provider and accounting manager controller (Dr. Nguyen) within 2 weeks 2. Take all medications as directed RODNEY BROOKS Feb 04, 2017 09:50
[2017-02-04] MEDS ORDERED: METO-448 PO (09:54)
[2017-02-04] MEDS ORDERED: METF1000 PO (09:54)
[2017-02-04] MEDS ORDERED: TAMS0.4C2 PO (09:54)
[2017-02-04] MEDS ORDERED: AMLO-147 PO (09:54)
[2017-02-04] MEDS ORDERED: RIVA20TA PO (09:54)
[2017-02-04] MEDS ORDERED: GLIM2TAB PO (09:54)
[2017-02-04] MEDS ORDERED: BENA20TA48 PO (09:54)
[2017-02-04] MEDS ORDERED: ATOR20TA65 PO (09:54)
[2017-02-04] MEDS ORDERED: OMEP20CA16 PO (09:54)
[2017-02-04] MEDS ORDERED: ASPI81TA3 PO (09:54)
--- NOTE | 2017-02-04 12:32 | DS ---
Date/Time of Note Date/Time of Note DATE: 02/04/17 TIME: 12:32 Discharge Summary Admission/Discharge Info Admit Date/Time Feb 01, 2017 at 15:52 Discharge Date/Time Patient Condition: Stable Hx of Present Illness Patient is a 61-year-old male with a past medical history significant for atrial fibrillation and diabetes mellitus who presents to [facility] for a 1 day onset of chest pain. Patient states that the chest pain is left-sided and central and does not radiate. Patient is still in chest pain however it is relieved by nitroglycerin given in the ED. Patient states that he has been taking medications, however does not remember names of all his medications. Patient states that he is taking hydralazine, however hydralazine is not on his previous medication. Patient's pediatric speech therapist is Dr. Reynold Nguyen , and he last saw his pediatric speech therapist 1 month ago. Patient states he takes all medications as directed. Patient also was found to be in hypertensive urgency. PMH: A. fib, diabetes mellitus, dyslipidemia, EPH, hypertension Social: Denies drugs, smoking, occasional alcohol Hospital Course Patient is a 61-year-old medically noncompliant patient who has a past medical history of atrial fibrillation and diabetes mellitus who presented with hypertensive urgency and chest pain. Cardiology was consulted and due to outpatient abnormal stress test, patient underwent cardiac catheterization. There was no significant stenosis and patient did not receive stent during this admission. Patient was urged to be compliant with his medications as patient is known noncompliant. Patient will be discharged with appropriate medications and patient's hypertensive urgency was likely secondary to medical noncompliance. Patient states that he will follow-up with his primary care provider as soon as possible and also well as pediatric speech therapist. Discharge diagnosis Chest pain Hypertensive urgency Atrial fibrillation Diabetes mellitus Dyslipidemia BPH Hypertension Home Meds Active Scripts Aspirin (Aspirin) 81 Mg Chew, 81 MG PO DAILY for 30 Days, #30 TAB Prov:RODNEY BROOKS 02/04/17 Metoprolol Tartrate* (Lopressor*) 25 Mg Tab, 25 MG PO BID for 30 Days, #60 TAB Prov:RODNEY BROOKS 02/04/17 Benazepril Hcl* (Benazepril Hcl*) 20 Mg Tablet, 20 MG PO DAILY for 30 Days, #30 TAB Prov:RODNEY BROOKS 02/04/17 Amlodipine Besylate* (Amlodipine Besylate*) 10 Mg Tablet, 10 MG PO DAILY for 30 Days, #30 TAB Prov:RODNEY BROOKS J 02/04/17 Atorvastatin Calcium (Atorvastatin Calcium) 20 Mg Tablet, 20 MG PO DAILY@21 for 30 Days, #30 TAB Prov:RODNEY BROOKS 02/04/17 Rivaroxaban* (Xarelto*) 20 Mg Tablet, 20 MG PO WITH DINNER for 30 Days, #30 TAB Prov:RODNEY BROOKS J 02/04/17 Metformin Hcl* (Metformin Hcl*) 1,000 Mg Tablet, 1000 MG PO BID for 30 Days, #60 Prov:RODNEY BROOKS J 02/04/17 Omeprazole* (Omeprazole*) 20 Mg Capsule.dr, 20 MG PO DAILY for 30 Days, #30 Prov:RODNEY BROOKS J 02/04/17 Tamsulosin Hcl* (Tamsulosin Hcl*) 0.4 Mg Cap.er.24h, 0.4 MG PO DAILY for 30 Days , #30 CAP Prov:RODNEY BROOKS J 02/04/17 Glimepiride* (Glimepiride*) 2 Mg Tablet, 2 MG PO DAILY for 30 Days, #30 Prov:RODNEY BROOKS 02/04/17 Discontinued Reported Medications Amitriptyline Hcl* (Amitriptyline Hcl*) 10 Mg Tablet, 10 MG PO DAILY 07/17/15 Fenofibrate, Micronized (Fenofibrate) 134 Mg Capsule, 134 MG PO DAILY 07/17/15 Meloxicam* (Mobic*) 15 Mg Tablet, 15 MG PO DAILY 07/17/15 Isosorbide Dinitrate* (Isosorbide Dinitrate*) 20 Mg Tablet, 30 MG PO DAILY 07/17/15 Zolpidem Tartrate* (Zolpidem Tartrate*) 10 Mg Tablet, 10 MG PO QHS Y for INSOMNIA, #30 07/17/15 Simvastatin (Simvastatin) 40 Mg Tablet, 40 MG PO DAILY 07/17/15 Benazepril Hcl* (Benazepril Hcl*) 20 Mg Tablet, 20 MG PO DAILY 07/17/15 Discontinued Scripts Olmesartan-Hydrochlorothiazide (Benicar HCT) 40-12.5 Mg Tablet, 1 TAB PO DAILY, #30 TAB Prov:TIMOTHY ALBERTS DO 10/01/15 Rivaroxaban* (Xarelto*) 20 Mg Tablet, 20 MG PO WITH DINNER for 30 Days, TAB Prov:FARHEEN CARTER RECTIFYING OPERATOR 07/19/15 Follow-up Plan 1. Please follow up with your primary care provider and pediatric speech therapist (Dr. Nguyen) within 2 weeks 2. Take all medications as directed Primary Care Provider Not On Staff Doctor Pending Labs Laboratory Tests Test 02/03/17 17:05 02/04/17 08:13 Bedside Glucose 190mg/dL (70-220) 113mg/dL (70-220) RODNEY BROOKS Feb 04, 2017 12:32
== END 2017-02-04 13:27 | disposition home or self-care (01) | DRG 287 ==
LOC: FTE 10:20 → MS4 15:52
PROVIDERS: ADMIT Internal Medicine; ATTEND Internal Medicine
PROC: B2101ZZ Fluoroscopy of Single Coronary Artery using Low Osmolar Contrast (ICD-10-PCS; 2017-02-03)
PROC: 4A023N7 Measurement of Cardiac Sampling and Pressure, Left Heart, Percutaneous Approach (ICD-10-PCS; principal; 2017-02-03 17:00)
DX: I25.10 Atherosclerotic heart disease of native coronary artery without angina pectoris (principal); I11.0 Hypertensive heart disease with heart failure; I50.9 Heart failure, unspecified; E11.8 Type 2 diabetes mellitus with unspecified complications; I34.0 Nonrheumatic mitral (valve) insufficiency; I35.1 Nonrheumatic aortic (valve) insufficiency; I48.0 Paroxysmal atrial fibrillation; R07.9 Chest pain, unspecified; I16.0 Hypertensive urgency; Z79.01 Long term (current) use of anticoagulants; E78.5 Hyperlipidemia, unspecified; Z72.0 Tobacco use; N40.0 Benign prostatic hyperplasia without lower urinary tract symptoms; Z79.82 Long term (current) use of aspirin; E78.00 Pure hypercholesterolemia, unspecified
CPT/HCPCS: 36415; 71010; 80048; 80053; 80061; 82550; 82553; 82962; 83735; 84100; 84484; 85025; 93005; 93306; 93458; 96374; 96375; C1887; J0360; J1644; J1815; J2250; J3010; J3030; J7030; Q9967